=== PATIENT | female | born 1975 | race Hispanic/Latino ===

== ENCOUNTER 2023-11-13 15:27 | Emergency (ER) | payer OTHER ==
[~2023-11-13] VITALS: Ht 162.6 cm; Wt 120.2 kg
[2023-11-13 15:31] VITALS: TEMP 98.2
[2023-11-13] MEDS: IBUPROFEN 600 MG TAB PO STA (16:48)
[2023-11-13 17:37] VITALS: PULSE 84; RESP 16
[2023-11-13 17:38] VITALS: BP 111/67; PULSE 84; RESP 16; O2SAT 99
== END 2023-11-13 17:41 | disposition home or self-care (01) ==
LOC: ER 15:28
DX: S93.492A Sprain of other ligament of left ankle, initial encounter (principal); S80.02XA Contusion of left knee, initial encounter; M17.12 Unilateral primary osteoarthritis, left knee; M25.472 Effusion, left ankle; M25.475 Effusion, left foot; W01.0XXA Fall on same level from slipping, tripping and stumbling without subsequent striking against object, initial encounter; Y93.01 Activity, walking, marching and hiking; Y92.89 Other specified places as the place of occurrence of the external cause; I10 Essential (primary) hypertension; E11.9 Type 2 diabetes mellitus without complications; E78.5 Hyperlipidemia, unspecified
CPT/HCPCS: 99284